=== PATIENT | female | born 1945 | race Caucasian/White ===

== ENCOUNTER → 2017-04-24 | Outpatient (CLI) | payer OTHER, BC | LOC: RAD 02:23 | DX: Z12.31 Encounter for screening mammogram for malignant neoplasm of breast (principal) ==

== ENCOUNTER → 2017-06-06 | Outpatient (CLI) | payer OTHER, BC ==
[~2017-06-06] VITALS: Ht 157.5 cm; Wt 81.6 kg
[~2017-06-06] MED LIST: ASPIR 8181 MG PO; ATORVASTATIN CA40 MG PO; CENTRUM SILVER1 EAC4 PO; EFFEXOR XR37.5 MG PO; HYDROCHLOROTHIA25 M2 PO; KLOR-CON 1010 MEQ PO; OMEPRAZOLE 20 M20 M1 PO; TRAMADOL 50 MG50 MG PO; TRANDOLAPRIL2 MG PO; TYLENOL325 MG PO; VITAMIN D3400 UNIT PO
--- NOTE | ~2017-06-06 | HPC ---
[facility] [place] [address] PAIN MANAGEMENT CONSULTATION Name: DAVID CRUZ Room #: REG [facility] M.R.#: [id number] Admission: 06/06/17 Attend Phys: Luis Jain MD Discharge: Date of : 41 Report #: [id number] THIS REPORT FOR: //name// CC: Fede Jain DATE OF SERVICE: 06/06/2017 CHIEF COMPLAINT: Pain down my right leg. FOLLOWUP HISTORY: The patient is a 71-year-old female who has been referred to the pain clinic. 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 She has had pain, which has been radiating down into her right leg. She had a similar pain in the . It improved with conservative treatment. She tries to exercise and notes that it worsens with exercise as well as with lifting. Pain is better when she rests. She describes it as continuous, burning, aching and rates it as a 7 today out of 10. She denies any bowel or bladder dysfunction as a result of this. ALLERGIES: An ANTI-INFLAMMATORY medication the name of which she could not recall. MEDICATIONS: Tramadol 50 mg q. 4-6 hours p.r.n., Lipitor 40 mg, Effexor 37.5 mg, hydrochlorothiazide 25 mg, trandolapril 2 mg, potassium 10 mEq, multivitamin, D3, Centrum Silver tablet, Tylenol 325 mg p.r.n., aspirin 81 mg, omeprazole 20 mg. PAST MEDICAL HISTORY: Hypertension, anemia, hypercholesterolemia, non-Hodgkin lymphoma in remission. PAST SURGICAL HISTORY: None. REVIEW OF SYSTEMS: Questionnaire in the chart indicate generally good health, fatigue, weakness, wears glasses, glaucoma/cataracts, hearing loss/ringing in the years, shortness of breath, anemia. LABORATORY DATA: No laboratory values are available at the time of our interview. The patient has pain and discomfort in the lower portion of her back with pain radiating down into the L5-S1 dermatomal region in the posterior of her leg. She notes that there is numbness, weakness, burning sensation involving this area. IMPRESSION: 1. Lumbar radiculopathy in the right L5-S1 distribution. 2. Hypertension. 3. [place] [address] PAIN MANAGEMENT CONSULTATION Name: DAVID CRUZ ORLANDO Room #: REG CL Hector#: [id number] Admission: 06/06/17 Attend Phys: Luis Jain MD Discharge: Date of : 41 Report #: [id number] 4. Anemia/history of lymphoma in the bone marrow. 5. Depression. 6. Non-Hodgkin lymphoma. RECOMMENDATIONS: We discussed treatment options with the patient. Risks and benefits of an epidural steroid injection were discussed. Possible complications were reviewed. The risks include but are not limited to infection, increased muscle soreness, bleeding, headache, nerve trauma. The patient elects to proceed. PROCEDURE NOTE: The patient was placed in the prone position. Fluoroscopy was used to identify the right L5-S1 dermatomal level. This area had been sterilely prepped with a Betadine solution. A 17-gauge Tuohy with loss of resistance technique was used to gain access to the epidural space. There was no CSF, heme or paresthesia. Total of 80 mg Depo-Medrol, 40 mg triamcinolone and 2 mL of 0.25% bupivacaine was injected. The patient's pain decreased to 0 at the time of discharge. She will follow up in the future as needed. We would like to thank you for letting us participate in her care. We hope she continues to improve. By: [id number] Luis Jain MD /esther
[2017-06-06 10:18] VITALS: BP 129/54
== END | disposition home or self-care (01) ==
LOC: PAIN 07:20
DX: M54.16 Radiculopathy, lumbar region (principal); I10 Essential (primary) hypertension; E78.00 Pure hypercholesterolemia, unspecified; D64.9 Anemia, unspecified; F32.9 Major depressive disorder, single episode, unspecified; C85.90 Non-Hodgkin lymphoma, unspecified, unspecified site

== ENCOUNTER → 2017-07-30 | Outpatient (CLI) | payer OTHER, BC ==
[~2017-07-30] VITALS: Ht 157.5 cm; Wt 80.7 kg
--- NOTE | ~2017-07-30 | HPC ---
[facility] [place] [address] PAIN MANAGEMENT CONSULTATION Name: DAVID CRUZ Room #: REG YOHANNES AgAlexa#: [id number] Admission: 07/30/17 Attend Phys: Luis Jain MD Discharge: Date of : 41 Report #: [id number] THIS REPORT FOR: //name// CC: Fede Jain DATE OF SERVICE: 07/30/2017 FOLLOWUP COMPLAINT: Pain in the low back, right thigh and down into the back of the right leg. HISTORY OF PRESENT ILLNESS: The patient is a 72-year-old female who has been seen in the pain clinic because of pain and discomfort, which has been radiating down to the L5-S1 dermatomal distribution of her leg. She has undergone epidural steroid injections in the past and gleaned benefits from these. She still feels that an epidural steroid injection at this juncture could prove beneficial. She has had no problems with her bowel or bladder dysfunction. She has returned today for treatment. PHYSICAL EXAMINATION: VITAL SIGNS: Blood pressure 134/72, pulse 70, respiratory rate 16, room air saturation 97%, height 5 feet 2 inches, weight 177 pounds, BMI is 32. The patient has pain and discomfort radiating down into her right thigh, hip and in the L5-S1 distribution of her leg. She rates it as a 5/10. She is experiencing some constant, aching, burning and intermittent pain with pulling. IMPRESSION: 1. Lumbar radiculopathy in the right L5-S1 distribution. 2. Hypertension. 3. Hypercholesterolemia. 4. Anemia/history of lymphoma in the bone marrow. 5. Depression. 6. Non-Hodgkin lymphoma. RECOMMENDATIONS: We discussed treatment options with the patient. Risks and benefits of an epidural steroid injection were reviewed. Possible complication of the procedure were discussed. The patient would like to proceed. PROCEDURE NOTE: The patient was placed in the prone position. Fluoroscopy was used to identify the right L5-S1 nerve root area. A 0.25% bupivacaine was infiltrated. A 17-gauge Tuohy with loss of resistance technique was used to gain access to the epidural space. There was no CSF, heme or paresthesia. Total of 80 mg Depo-Medrol, 40 mg triamcinolone and 2 mL of 0.25% bupivacaine [address] [address] PAIN MANAGEMENT CONSULTATION Name: DAVID CRUZ ORLANDO Room #: REG [facility] Hector#: [id number] Admission: 07/30/17 Attend Phys: Luis Jain MD Discharge: Date of : 41 Report #: [id number] was injected. The patient tolerated the procedure well. We would like to thank you for letting us participate in her care. We hope she continues to improve. <ELECTRONICALLY SIGNED> By: Luis Jain MD 10/16/17 0936 [id number] Luis Jain MD /NICOLE
[2017-07-30 13:59] VITALS: BP 134/72
== END | disposition home or self-care (01) ==
LOC: PAIN 06-20 06:56
DX: M54.16 Radiculopathy, lumbar region (principal); I10 Essential (primary) hypertension; E78.00 Pure hypercholesterolemia, unspecified; D64.9 Anemia, unspecified; C85.90 Non-Hodgkin lymphoma, unspecified, unspecified site; F32.9 Major depressive disorder, single episode, unspecified; Z68.32 Body mass index [BMI] 32.0-32.9, adult

== ENCOUNTER → 2018-02-09 | Outpatient (CLI) | payer OTHER, BC | LOC: CAT 01-28 15:13 | DX: C85.80 Other specified types of non-Hodgkin lymphoma, unspecified site (principal); N28.1 Cyst of kidney, acquired; I89.0 Lymphedema, not elsewhere classified ==

== ENCOUNTER → 2018-04-30 | Outpatient (CLI) | payer OTHER, BC | LOC: RAD 01:05 | DX: Z12.31 Encounter for screening mammogram for malignant neoplasm of breast (principal) ==

== ENCOUNTER → 2018-05-08 | Outpatient (CLI) | payer OTHER, BC | LOC: RAD 01:50 | DX: R92.2 Inconclusive mammogram (principal) ==

== ENCOUNTER → 2018-11-18 | Outpatient (CLI) | payer OTHER, BC | LOC: RAD 01:07 | DX: R92.2 Inconclusive mammogram (principal); R92.1 Mammographic calcification found on diagnostic imaging of breast ==

== ENCOUNTER → 2018-12-25 | Outpatient (CLI) | payer OTHER, BC ==
[~2018-12-25] VITALS: Ht 160 cm; Wt 83.5 kg
--- NOTE | ~2018-12-25 | HPC ---
[facility] [place] [address] PAIN MANAGEMENT CONSULTATION Name: DAVID CRUZ Room #: REG YOHANNES Kimberli.#: [id number] Admission: 12/25/18 ������������������ Attend Phys: Luis Jain MD Discharge: ������������������ Date of : 43 Report #: [id number] THIS REPORT FOR: //name// CC: Fede Jain DATE OF SERVICE: 12/25/2018 CHIEF COMPLAINT: Low back pain and right hip pain, with pain down into the low back and buttocks area. FOLLOWUP HISTORY: The patient is a 73-year-old female who has been seen in the Pain Clinic in the past because of chronic low back pain. She has undergone epidural steroid injections in the past. This has been in the L5-S1 dermatomal distribution. She has gleaned benefits from them. She has returned today indicating that her pain has over the last 2 months become more problematic. She described it as constant, burning and aching. She rates it as a 5/10. She notes that activities of daily living such as lifting, sitting, standing can be problematic. Pain improves with use of rest as well as when she is lying down and ice has been beneficial as well. ALLERGIES: ANTI-INFLAMMATORY MEDICATIONS, NAMES OF WHICH SHE CANNOT RECALL. CURRENT MEDICATIONS: Tramadol 50 mg q. four hours p.r.n., Lipitor 40 mg, Effexor XR 37.5 mg, hydrochlorothiazide 25 mg, trandolapril 2 mg, potassium 10 mEq, vitamin D 400 units, aspirin 81 mg, omeprazole 20 mg. PAIN CLINIC ASSESSMENT/PQRS: 1. History of osteoarthritis involving the left lower extremity and the right lower extremity. The patient is not being treated for rheumatoid arthritis. 2. Height 5 feet 3 inches, weight 184 pounds, BMI 32. 3. Vital Signs: Blood pressure 117/55, pulse 82, respiratory rate 18, room air saturation 99%. 4. Pain intensity: 5/10. 5. Fall risk: The patient has not fallen in the last 3 months. 6. Blood thinner: The patient is not on a blood thinning medication. 7. Hypertension. The patient is being treated for hypertension. 8. Opioid therapy greater than 6 weeks. 9. Risk assessment tool: 1, low for opioid use. 10. Functional assessment tool: 41/70. 11. Recreational drug use: The patient denies use of recreational drugs. 12. Tobacco: The patient quit in the . She smoked one-half pack of cigarettes per day for 20 years. 13. Alcohol: The patient denies use of alcoholic beverages. PHYSICAL EXAMINATION: [facility] [address] [place] [address] PAIN MANAGEMENT CONSULTATION Name: DAVID CRUZ Room #: REG YOHANNES Young#: [id number] Admission: 12/25/18 ������������������ Attend Phys: Luis Jain MD Discharge: ������������������ Date of : 41 Report #: [id number] GENERAL: The patient is a well-developed, well-nourished white female. She appears her stated age. She is alert and oriented x 3. Her affect is appropriate. Speech is fluent. HEENT: Normocephalic, atraumatic. Extraocular eye muscles are intact. Sclerae are nonicteric. Mucous membranes are moist. NECK: Without adenopathy or JVD. HEART: Regular rate. ABDOMEN: Nontender. MUSCULOSKELETAL: The patient has pain and discomfort in the lower portion of her back with pain that is radiating down into the right L5-S1 dermatomal distribution. IMPRESSION: 1. Lumbar radiculopathy in the right L5-S1 dermatomal distribution. 2. Hypertension. 3. Hypercholesterolemia. 4. Anemia/history of lymphoma in the bone marrow. 5. Depression. 6. Non-Hodgkin's lymphoma. RECOMMENDATIONS: We discussed treatment options with the patient. Risks and benefits of an epidural steroid injection were again reviewed. They include but are not limited to infection, worsening of pain, no improvement in pain, nerve damage, spinal headache. The patient elects to proceed. PROCEDURE NOTE: The patient was placed in the prone position. Fluoroscopy was used to identify the L5-S1 area. A pillow was placed on the abdomen to bolster and improve positioning. Fluoroscopy using anterior, posterior as well as lateral viewing were implemented. The patient's back was sterilely prepped with a Betadine solution. It was allowed to dry. A 25-gauge needle was then advanced into the L5-S1 area using a right paramedian approach. This was used to anesthetize the area. A 17-gauge Tuohy with loss of resistance technique was used to gain access to the epidural space. There was no CSF, heme or paresthesia. A total of 80 mg Depo-Medrol, 40 mg triamcinolone and 2 mL of 0.25% bupivacaine was injected. The patient tolerated the procedure well. There were no complications. She remained in the Pain Clinic for an appropriate amount of time. Ten seconds fluoroscopy time was used. The patient will follow up in the future as needed. We would like to thank you for letting us participate in her care. We hope she continues to improve. ��������������������������������������������� ���������������������������������������� By: ��������������������������������������������� [id number] Luis Jain MD /nt
[2018-12-25 09:01] VITALS: BP 117/55
--- NOTE | 2018-12-25 09:13 | NUR ---
Pain Clinic Assessment: 1. History of Osteoarthritis: Left Lower Extremity Right Lower Extremity History of Rheumatoid Arthritis: Not Applicable 2. Height: 5 ft. 3 in. 160.0 cm. Weight: 184.0 lb. oz. 83.462 kg. Patient's BMI: 32.6 3. Vital Signs: BP: 117/55 Pulse: 82 Resp: 18 Temp: 02 Sat: 99 ECG Mon: 4. Pain Intensity: 5 5. Fall Risk: Dizziness: N Needs help standing or walking: N Fallen in the last 3 months: N Fall risk comments: 6. Patient on Blood Thinner: None 7. History of Hypertension: Y 8. Opioid Therapy greater than 6 weeks: N Opiate Contract Signed: 9. Risk Assessment Tool Provided: 1-LOW RISK 10. Functional Assessment Tool: 11. Recreational Drug Use: Never Drug Type: Tobacco Use: Former Smoker Tobacco Type: Cigarettes Amount or Packs/day: 1/2 PPD How Many Years: 20 Alcohol Use: No Frequency: Quant:
== END | disposition home or self-care (01) ==
LOC: PAIN 06:48
DX: M54.16 Radiculopathy, lumbar region (principal); G89.29 Other chronic pain; I10 Essential (primary) hypertension; E78.00 Pure hypercholesterolemia, unspecified; D64.9 Anemia, unspecified; F32.9 Major depressive disorder, single episode, unspecified; C85.90 Non-Hodgkin lymphoma, unspecified, unspecified site; Z88.8 Allergy status to other drugs, medicaments and biological substances; Z79.82 Long term (current) use of aspirin; Z79.899 Other long term (current) drug therapy; Z87.891 Personal history of nicotine dependence; Z98.890 Other specified postprocedural states

== ENCOUNTER → 2019-05-12 | Outpatient (CLI) | payer OTHER, BC | LOC: RAD 01:19 | DX: Z12.31 Encounter for screening mammogram for malignant neoplasm of breast (principal) ==

== ENCOUNTER → 2019-10-13 | Outpatient (CLI) | payer OTHER, BC ==
[~2019-10-13] VITALS: Ht 160 cm; Wt 72.8 kg
[2019-10-13 09:54] VITALS: BP 123/49
--- NOTE | 2019-10-13 10:03 | NUR ---
Pain Clinic Assessment: 1. History of Osteoarthritis: Left Lower Extremity Right Lower Extremity History of Rheumatoid Arthritis: Not Applicable 2. Height: 5 ft. 3 in. 160.0 cm. Weight: 160.6 lb. oz. 72.848 kg. Patient's BMI: 28.5 3. Vital Signs: BP: 123/49 Pulse: 78 Resp: 18 Temp: 02 Sat: 97 ECG Mon: 4. Pain Intensity: 5 5. Fall Risk: Dizziness: N Needs help standing or walking: N Fallen in the last 3 months: N Fall risk comments: 6. Patient on Blood Thinner: None 7. History of Hypertension: Y 8. Opioid Therapy greater than 6 weeks: N Opiate Contract Signed: 9. Risk Assessment Tool Provided: 1-LOW RISK 10. Functional Assessment Tool: 11. Recreational Drug Use: Never Drug Type: Tobacco Use: Former Smoker Tobacco Type: Cigarettes Amount or Packs/day: 1 How Many Years: 25 Alcohol Use: No Frequency: Quant:
--- NOTE | 2019-10-26 14:24 | HPC ---
[facility] [place] [address] PAIN MANAGEMENT CONSULTATION Name: DAVID CRUZ Room #: REG YOHANNES Hector#: [id number] Admission: 10/13/19 Attend Phys: Luis Jain MD Discharge: Date of : 41 Report #: [id number] THIS REPORT FOR: //name// CC: Fede Jain DATE OF SERVICE: 10/13/2019 CHIEF COMPLAINT: Return of back pain that is going down in my right leg to the level of the knee. HISTORY: The patient is a 74-year-old female who has been followed in the pain clinic because of chronic low back pain. She has undergone epidural steroid injections in the past. She has had lumbar radicular pain, which has been problematic. She returns today indicating that her pain has reoccurred. She rates it as a 5/10. It is radiating down the posterior portion of her thigh level of the knee. She received 9 months of relief after the last injection. She has returned today for repeat injection. As you may recall, she has had non-Hodgkin's lymphoma, 7 years. She describes it as pain in her right hip down into the right leg and has been more problematic over the last 9 days. There is a burning component to it. She notes that it is exacerbated with activities, bending, standing, sitting and walking can be problematic, it sometimes improves with rest. Has used ice to help with the pain and discomfort. ALLERGIES: ANTI-INFLAMMATORY medications, names of which she could not recall. CURRENT MEDICATIONS: Tramadol 50 mg q.4 hours, Lipitor 40 mg, Effexor XR 37.5 mg, hydrochlorothiazide 25 mg, trandolapril 2 mg, potassium 10 mEq, vitamin D3 400 mg, aspirin 81 mg, and omeprazole 20 mg. PAIN CLINIC ASSESSMENT AND PQRS: 1. History of osteoarthritis. The patient has pain and discomfort in her right lower extremity. She is not being treated for rheumatoid arthritis. 2. Height 5 feet 3 inches, weight 160 pounds, BMI is 28.5. 3. Vital Signs: Blood pressure 123/49, pulse 78, respiratory rate 18, room air saturation 97%. 4. Pain intensity 03/05. 5. Fall risk. The patient has not fallen in the last 3 months. 6. Blood thinner. The patient is not on a blood thinning medication. 7. Hypertension. The patient is being treated for hypertension. 8. Opioids greater than 6 weeks. 9. Risk assessment tool, low for opioid use. 10. Functional assessment tool is 41/70. 11. Recreational drug use: The patient denies. 12. Tobacco: The patient is a former smoker, smoked 1 pack of cigarettes per day for [address] [address] PAIN MANAGEMENT CONSULTATION Name: DAVID CRUZ ORLANDO [id number] Admission: 10/13/19 Attend Phys: Luis Jain MD Discharge: Date of : 41 Report #: [id number] 13. Alcohol: The patient denies use of alcoholic beverages. PHYSICAL EXAMINATION: GENERAL: The patient is a well-developed, well-nourished white female. Appears her stated age. She is alert and oriented x 3. Her affect is appropriate. Speech is fluent. HEENT: Normocephalic. She is unaccompanied. Extraocular eye muscles intact. Sclerae nonicteric. Mucous membranes moist. NECK: Without adenopathy or JVD. HEART: Regular rate. ABDOMEN: Nontender. EXTREMITIES: Lower extremity, the patient has pain and discomfort that is radiating down in the lower portion of her back in the L5-S1 dermatomal distribution, it involves the right side. IMPRESSION: 1. Lumbar radiculopathy in the right L5-S1 dermatomal distribution. 2. Hypertension. 3. Hypercholesterolemia. 4. Anemia/history of lymphoma in the bone marrow. 5. Depression. 6. Non-Hodgkin's lymphoma. RECOMMENDATIONS: We discussed treatment options with the patient. Risks and benefits of an epidural steroid injection were again discussed. Possible complications of the procedure, which could include, but are not limited to infection, worsening of pain, no improvement in pain and the patient elects to proceed. PROCEDURE NOTE: The patient was taken to the procedure area. She was then assisted in getting on the examination table. Her back was sterilely prepped with a Betadine solution. A pillow was placed under the abdomen to bolster and improve positioning. Fluoroscopy using anterior, posterior as well as lateral viewing were implemented. A 0.25% bupivacaine was infiltrated at the L5-S1 area to anesthetize it. A 17-gauge Tuohy with loss of resistance technique was used to gain access to the epidural space. There was no CSF, heme or paresthesia. Total of 80 mg Depo-Medrol, 40 mg triamcinolone and 2 mL of 0.25% bupivacaine was injected. The patient's pain decreased from 5-0 at the time of discharge. She will follow up in the future as needed. We would like to thank you for letting us participate in her care. We hope she continues to improve. <ELECTRONICALLY SIGNED> By: Luis Jain MD 10/26/19 1424 0232 [id number] MD TAO Espinoza
== END | disposition home or self-care (01) ==
LOC: PAIN 06:54
DX: M54.16 Radiculopathy, lumbar region (principal); G89.29 Other chronic pain; I10 Essential (primary) hypertension; E78.00 Pure hypercholesterolemia, unspecified; D64.9 Anemia, unspecified; F32.9 Major depressive disorder, single episode, unspecified; Z98.890 Other specified postprocedural states; Z79.899 Other long term (current) drug therapy; Z88.8 Allergy status to other drugs, medicaments and biological substances; Z85.72 Personal history of non-Hodgkin lymphomas; Z87.891 Personal history of nicotine dependence

== ENCOUNTER → 2020-05-26 | Outpatient (CLI) | payer OTHER, BC | LOC: RAD 09:46 | PROVIDERS: ATTEND Internal Medicine | DX: Z12.31 Encounter for screening mammogram for malignant neoplasm of breast (principal) ==

== ENCOUNTER → 2020-05-31 | Outpatient (CLI) | payer OTHER, BC | LOC: RAD 12:41 | PROVIDERS: ATTEND Internal Medicine | DX: N63.20 Unspecified lump in the left breast, unspecified quadrant (principal); R92.1 Mammographic calcification found on diagnostic imaging of breast ==

== ENCOUNTER → 2021-05-03 | Outpatient (CLI) | payer OTHER, BC | LOC: CAT 10:35 | PROVIDERS: ATTEND Internal Medicine | DX: K80.20 Calculus of gallbladder without cholecystitis without obstruction (principal); K57.30 Diverticulosis of large intestine without perforation or abscess without bleeding ==

== ENCOUNTER → 2021-06-15 | Outpatient (CLI) | payer OTHER, BC | LOC: BC 12:18 | PROVIDERS: ATTEND Internal Medicine | DX: Z12.31 Encounter for screening mammogram for malignant neoplasm of breast (principal) ==

== ENCOUNTER → 2021-12-20 | Outpatient (CLI) | payer OTHER, BC | LOC: MRI 08:10 | PROVIDERS: ATTEND Internal Medicine | DX: I67.82 Cerebral ischemia (principal); G31.9 Degenerative disease of nervous system, unspecified; J32.2 Chronic ethmoidal sinusitis ==